=== PATIENT | female | born 1955 ===

== ENCOUNTER → 2025-02-15 | Outpatient (CLI) | payer MEDICARE, BC ==
[2025-02-15 16:08] LABS: Microalb/Creat Ratio UR, Rand 6.296 mg/g (0.000-30.000); Microalbumin, Random Urine 7.87 mg/L (0.000-20.000)
== END ==
LOC: LAB SHORT 13:12 → LAB 13:12
PROVIDERS: Family Medicine
DX: N18.2 Chronic kidney disease, stage 2 (mild) (principal)
CPT/HCPCS: 82043; 82570